=== PATIENT | female | born 1995 ===

== ENCOUNTER 2022-03-22 23:51 | Emergency (ER) | payer BC ==
[2022-03-22 23:58] VITALS: TEMP 98.3
[2022-03-23] MEDS ORDERED: SODIUM CHLORIDE 0.9% 500 ML 500 ML IV STA (00:38)
[2022-03-23] MEDS ORDERED: SODIUM CHLORIDE 0.9% 1,000 ML IV STA ×2 (00:38)
[2022-03-23] MEDS ORDERED: ONDANSETRON 4 MG/2 ML VIAL IVP STA (00:38)
[2022-03-23] MEDS ORDERED: PANTOPRAZOLE 40 MG/10 ML VIAL IVP STA (00:38)
--- NOTE | 2022-03-23 00:39 | ED ---
Nausea/Vomiting/Diarrhea HPI - General Chief complaint: Nausea/Vomiting/Diarrhea Stated complaint: Rapid Heart Rate, Vomiting, Diarrhea Source: patient Mode of arrival: ambulatory Limitations: no limitations - Related Data Home Medications Medication Instructions Recorded Confirmed Cholecalciferol [Vitamin D3 (10 20 mcg PO DAILY 02/16/21 Mcg = 400 Iu)] Multivitamins, Thera [Multivitamin 1 tab PO DAILY 02/16/21 (formulary)] Allergies Allergy/AdvReac Type Severity Reaction Status Date / Time amoxicillin Allergy Itching,rash,rapid Verified 03/22/22 23:58 heart rate cefaclor [From Ceclor] Allergy Unknown Verified 03/22/22 23:58 Childhood diphenhydramine Allergy Rapid Verified 03/22/22 23:58 [From Benadryl] Heart Rate Review of Systems ROS Statement: Those systems with pertinent positive or pertinent negative responses have been documented in the HPI. ROS Other: All systems not noted in ROS Statement are negative. Past Medical History Past Medical History: Asthma, GERD/Reflux Additional Past Medical History / Comment(s): heart palpitations or not sure if was having esophageal spasms, all cardiac testing WNL per pt., tries to eat >3 hours before goes to bed or has horrible heart burn, sometimes epigastric pain, exercised induced asthma, has pituitary adenoma-just moved here from [place] so probably PCP will monitor History of Any Multi-Drug Resistant Organisms: None Reported Past Surgical History: Adenoidectomy, Tonsillectomy Additional Past Surgical History / Comment(s): wisdom teeth removed Past Anesthesia/Blood Transfusion Reactions: No Reported Reaction Past Psychological History: No Psychological Hx Reported Smoking Status: Never smoker Past Alcohol Use History: Occasional Past Drug Use History: None Reported General Exam Limitations: no limitations Course Vital Signs 03/22/22 03/23/22 03/23/22 23:53 00:40 01:45 Temperature 98.3 F Pulse Rate 120 H 104 H 91 Respiratory 20 Rate Blood Pressure 116/76 O2 Sat by Pulse 96 Oximetry Medical Decision Making - Lab Data Result diagrams: 03/23/22 01:24 03/23/22 01:24 Lab Results 03/23/22 03/23/22 03/23/22 Range/Units 01:23 01:24 01:24 WBC 10.7 H (3.8-10.6) k/uL RBC 4.35 (3.80-5.40) m/uL Hgb 13.0 (11.4-16.0) gm/dL Hct 39.3 (34.0-46.0) % MCV 90.3 (80.0-100.0) fL MCH 30.0 (25.0-35.0) pg MCHC 33.2 (31.0-37.0) g/dL RDW 12.3 (11.5-15.5) % Plt Count 326 (150-450) k/uL MPV 8.0 Neutrophils % 84 % Lymphocytes % 10 % Monocytes % 3 % Eosinophils % 1 % Basophils % 0 % Neutrophils # 9.0 H (1.3-7.7) k/uL Lymphocytes # 1.1 (1.0-4.8) k/uL Monocytes # 0.3 (0-1.0) k/uL Eosinophils # 0.1 (0-0.7) k/uL Basophils # 0.0 (0-0.2) k/uL Sodium 137 (137-145) mmol/L Potassium 3.7 (3.5-5.1) mmol/L Chloride 105 (98-107) mmol/L Carbon Dioxide 20 L (22-30) mmol/L Anion Gap 12 mmol/L BUN 14 (7-17) mg/dL Creatinine 0.62 (0.52-1.04) mg/dL Est GFR (CKD-EPI)AfAm >90 (>60 ml/min/1.73 sqM) Est GFR (CKD-EPI)NonAf >90 (>60 ml/min/1.73 sqM) Glucose 117 H (74-99) mg/dL Calcium 9.4 (8.4-10.2) mg/dL Total Bilirubin 0.7 (0.2-1.3) mg/dL AST 32 (14-36) U/L ALT 34 (4-34) U/L Alkaline Phosphatase 58 (38-126) U/L Total Protein 7.2 (6.3-8.2) g/dL Albumin 4.4 (3.5-5.0) g/dL Amylase 81 (30-110) U/L Lipase 29 (23-300) U/L Influenza Type A (PCR) Not Detected (Not Detectd) Influenza Type B (PCR) Not Detected (Not Detectd) RSV (PCR) Not Detected (Not Detectd) SARS-CoV-2 (PCR) Not Detected (Not Detectd) Disposition Clinical Impression: Gastroenteritis, Dehydration Disposition: HOME SELF-CARE Condition: Good Instructions (If sedation given, give patient instructions): Acute Nausea and Vomiting (ED), Acute Diarrhea (ED) Is patient prescribed a controlled substance at d/c from ED?: No Referrals: Nonstaff,Physician [Primary Care Provider] - 1-2 days Time of Disposition: 02:50
[2022-03-23 01:39] LABS: Basophils % (A) 0 %; Eosinophils # (A) 0.1 k/uL (0-0.7); Eosinophils % (A) 1 %; HCT 39.3 % (34.0-46.0); Lymphocytes # (A) 1.1 k/uL (1.0-4.8); Lymphocytes % (A) 10 %; MCHC 33.2 g/dL (31.0-37.0); MCV 90.3 fL (80.0-100.0); Monocytes # (A) 0.3 k/uL (0-1.0); Monocytes % (A) 3 %; Neutrophils % (A) 84 %; Platelet Count 326 k/uL (150-450); RBC 4.35 m/uL (3.80-5.40); RDW 12.3 % (11.5-15.5); WBC 10.7 k/uL (3.8-10.6)
[2022-03-23 01:47] LABS: ALT 34 U/L (4-34); AST 32 U/L (14-36); African American GFR (CKD) >90 (>60 ml/min/1.73 sqM); Albumin 4.4 g/dL (3.5-5.0); Alkaline Phosphatase 58 U/L (38-126); Amylase 81 U/L (30-110); Anion Gap 12 mmol/L; Blood Urea Nitrogen 14 mg/dL (7-17); Calcium 9.4 mg/dL (8.4-10.2); Carbon Dioxide 20 mmol/L (22-30); Chloride 105 mmol/L (98-107); Glucose 117 mg/dL (74-99); Lipase 29 U/L (23-300); Non-African American GFR(CKD) >90 (>60 ml/min/1.73 sqM); Potassium 3.7 mmol/L (3.5-5.1); Sodium 137 mmol/L (137-145); Total Bilirubin 0.7 mg/dL (0.2-1.3); Total Protein 7.2 g/dL (6.3-8.2)
[2022-03-23] MEDS ORDERED: ONDANSETRON 4 MG ODT STARTER PACK 2 TAB BTL PO STA (02:46)
[2022-03-23 03:04] VITALS: BP 104/71; PULSE 71; RESP 16
[2022-03-23 03:04] LABS: Appearance,Urine Clear (Clear); Bilirubin,Urine Negative (Negative); Blood,Urine Negative (Negative); Color,Urine Yellow; Glucose,Urine (UA) Negative (Negative); Hyaline Casts,Urine 1 /lpf (0-2); Ketones,Urine 4+ (Negative); Leukocyte Esterase,Urine Negative (Negative); Mucus,Urine Many /hpf; Nitrite,Urine Negative (Negative); Protein,Urine 1+ (Negative); RBC,Urine 1 /hpf (0-5); Specific Gravity,Urine 1.029 (1.001-1.035); Squamous Epithelial Cell,Urine 2 /hpf (0-4); Urobilinogen,Urine <2.0 mg/dL (<2.0); WBC,Urine 1 /hpf (0-5)
== END 2022-03-23 03:22 | disposition home or self-care (01) ==
LOC: EC 23:51
DX: K52.9 Noninfective gastroenteritis and colitis, unspecified (principal); E86.0 Dehydration; J45.909 Unspecified asthma, uncomplicated; Z20.822 Contact with and (suspected) exposure to COVID-19; Z88.8 Allergy status to other drugs, medicaments and biological substances; Z88.1 Allergy status to other antibiotic agents; Z88.0 Allergy status to penicillin
CPT/HCPCS: 36415; 80053; 82150; 83690; 85025; 81001; 81025; 87636; 99284; 96374; 96375; 96361; J2405; S0119; C9113

== ENCOUNTER 2024-03-12 23:57 | Observation (INO) | payer BC ==
--- NOTE | 2024-03-13 00:15 | ED ---
General Adult HPI - General Stated complaint: Tachycardia Time Seen by Provider: 03/12/24 23:58 Source: patient, EMS, RN notes reviewed Mode of arrival: EMS Limitations: no limitations - History of Present Illness Initial comments: 28-year-old female presents emergency department via EMS with chief complaint of palpitations. Patient states she was suddenly woken by heart racing. She states she felt very dizzy, lightheaded and felt she could not move because she was nauseated and dizzy. Patient brought in by EMS heart rate to be found in meds improved. Patient states this happened several years ago. Patient states that she has been having on and off symptoms has recent seen her primary care physician, has had appointment with neurology and is currently being worked up and has seen cardiology years ago had Holter monitor showing PVCs. Patient denies complaints of chest pain she states she was short of breath. Patient denies any fever cough cold-like symptoms no nausea vomiting. - Related Data Home Medications Medication Instructions Recorded Confirmed Cholecalciferol [Vitamin D3 (10 20 mcg PO DAILY 02/16/21 Mcg = 400 Iu)] Multivitamins, Thera [Multivitamin 1 tab PO DAILY 02/16/21 (formulary)] Allergies Allergy/AdvReac Type Severity Reaction Status Date / Time amoxicillin Allergy Itching,rash,rapid Verified 03/22/22 23:58 heart rate cefaclor [From Ceclor] Allergy Unknown Verified 03/22/22 23:58 Childhood diphenhydramine Allergy Rapid Verified 03/22/22 23:58 [From Benadryl] Heart Rate Review of Systems ROS Statement: Those systems with pertinent positive or pertinent negative responses have been documented in the HPI. ROS Other: All systems not noted in ROS Statement are negative. Past Medical History Past Medical History: Asthma, GERD/Reflux Additional Past Medical History / Comment(s): heart palpitations or not sure if was having esophageal spasms, all cardiac testing WNL per pt., tries to eat >3 hours before goes to bed or has horrible heart burn, sometimes epigastric pain, exercised induced asthma, has pituitary adenoma-just moved here from [place] so probably PCP will monitor History of Any Multi-Drug Resistant Organisms: None Reported Past Surgical History: Adenoidectomy, Tonsillectomy Additional Past Surgical History / Comment(s): wisdom teeth removed Past Anesthesia/Blood Transfusion Reactions: No Reported Reaction Past Psychological History: No Psychological Hx Reported Smoking Status: Never smoker Past Alcohol Use History: Occasional Past Drug Use History: None Reported General Exam Limitations: no limitations General appearance: alert, in no apparent distress Head exam: Present: atraumatic, normocephalic, normal inspection Eye exam: Present: normal appearance, PERRL, EOMI. Absent: scleral icterus, conjunctival injection, periorbital swelling ENT exam: Present: normal exam, normal oropharynx, mucous membranes moist Neck exam: Present: normal inspection, full ROM. Absent: tenderness, meningismus, lymphadenopathy Respiratory exam: Present: normal lung sounds bilaterally. Absent: respiratory distress, wheezes, rales, rhonchi, stridor Cardiovascular Exam: Present: regular rate, normal rhythm, normal heart sounds. Absent: systolic murmur, diastolic murmur, rubs, gallop, clicks GI/Abdominal exam: Present: soft, normal bowel sounds. Absent: distended, tenderness, guarding, rebound, rigid Course Vital Signs 03/13/24 03/13/24 03/13/24 00:00 01:20 02:22 Pulse Rate 126 H 126 H 118 H Respiratory 18 18 18 Rate Blood Pressure 123/86 126/84 121/79 O2 Sat by Pulse 100 100 99 Oximetry EKG Findings - EKG Comments: EKG Findings:: EKG performed at 00: 15 sinus tachycardia rate of 123 [place] 127 QRS 83 QT/QTc 346/417. Repeat EKG interpreted by me as sinus tachycardia rate of 114 [place] 127 QRS 81 QT/QTc 321/389 - EKG Results: EKG: interpreted by [facility] Medical Decision Making - Medical Decision Making Was pt. sent in by a medical professional or institution (, PA, APPRENTICE PLUMBER, urgent care, hospital, or longterm...) When possible be specific @ -No Did you speak to anyone other than the patient for history (EMS, parent, family, police, friend...)? What history was obtained from this source @ -No Did you review nursing and triage notes (agree or disagree)? Why? @ -I reviewed and agree with nursing and triage notes Were old charts reviewed (outside hosp., previous admission, EMS record, old EKG, old radiological studies, urgent care reports/EKG's, longterm records)? Report findings @ -No old charts were reviewed Differential Diagnosis (chest pain, altered mental status, abdominal pain women, abdominal pain men, vaginal bleeding, weakness, fever, dyspnea, syncope, headache, dizziness, GI bleed, back pain, seizure, CVA, palpatations, mental health, musculoskeletal)? @ -Differential Palpitations Ventricular arrhythmias, atrial arrhythmias, myocardial infarction, anemia, thyrotoxicosis, electrolyte imbalance, hypokalemia, pulmonary embolism, pulmonary disease, drugs, alcohol, anxiety, stress.... This is not meant to be an all-inclusive list. EKG interpreted by me (3pts min.). @ -As above X-rays interpreted by me (1pt min.). @ -Chest x-ray shows no acute cardiopulmonary process. CT interpreted by me (1pt min.). @ -None done U/S interpreted by me (1pt. min.). @ -None done What testing was considered but not performed or refused? (CT, X-rays, U/S, labs)? Why? @ -None What meds were considered but not given or refused? Why? @ -None Did you discuss the management of the patient with other professionals (professionals i.e. , PA, APPRENTICE PLUMBER, lab, RT, psych nurse, social media marketing analyst, transonic engineer, teacher, protocol officer, case briefer)? Give summary @ -EMH for admission Was smoking cessation discussed for >3mins.? @ -No Was critical care preformed (if so, how long)? @ -No Were there social determinants of health that impacted care today? How? (Homelessness, low income, unemployed, alcoholism, drug addiction, transportation, low edu. Level, literacy, decrease access to med. care, usp, r ehab)? @ -No Was there de-escalation of care discussed even if they declined (Discuss DNR or withdrawal of care, Hospice)? DNR status @ -No What co-morbidities impacted this encounter? (DM, HTN, Smoking, COPD, CAD, Cancer, CVA, ARF, Chemo, Hep., AIDS, mental health diagnosis, sleep apnea, morbid obesity)? @ -None Was patient admitted / discharged? Hospital course, mention meds given and route, prescriptions, significant lab abnormalities, going to OR and other pertinent info. @ -[Admitted patient's had persistent tachycardia unchanged. Patient will be admitted for cardiology evaluation as she did have some chest discomfort associated. Patient had recent thyroid studies which were unremarkable. Undiagnosed new problem with uncertain prognosis? @ -No Drug Therapy requiring intensive monitoring for toxicity (Heparin, Nitro, Insulin, Cardizem)? @ -No Were any procedures done? @ -No Diagnosis/symptom? @ -Persistent tachycardia Acute, or Chronic, or Acute on Chronic? @ -Acute Uncomplicated (without systemic symptoms) or Complicated (systemic symptoms)? @ -Complicated Side effects of treatment? @ -No Exacerbation, Progression, or Severe Exacerbation? @ -No Poses a threat to life or bodily function? How? (Chest pain, [place], [place], pneumonia, PE, COPD, DKA, ARF, appy, cholecystitis, CVA, Diverticulitis, Homicidal, Suicidal, threat to staff... and all critical care pts) @ -No - Lab Data Result diagrams: 03/13/24 00:26 03/13/24 00:26 Lab Results 03/13/24 03/13/24 03/13/24 Range/Units 00:26 00:26 00:26 WBC 8.8 (3.8-10.6) k/uL RBC 4.23 (3.80-5.40) m/uL Hgb 12.8 (11.4-16.0) gm/dL Hct 38.4 (34.0-46.0) % MCV 90.7 (80.0-100.0) fL MCH 30.3 (25.0-35.0) pg MCHC 33.4 (31.0-37.0) g/dL RDW 12.1 (11.5-15.5) % Plt Count 329 (150-450) k/uL MPV 7.4 Neutrophils % 50 % Lymphocytes % 38 % Monocytes % 4 % Eosinophils % 6 % Basophils % 1 % Neutrophils # 4.4 (1.3-7.7) k/uL Lymphocytes # 3.3 (1.0-4.8) k/uL Monocytes # 0.4 (0-1.0) k/uL Eosinophils # 0.5 (0-0.7) k/uL Basophils # 0.1 (0-0.2) k/uL Sodium 136 L (137-145) mmol/L Potassium 3.5 (3.5-5.1) mmol/L Chloride 108 H (98-107) mmol/L Carbon Dioxide 22 (22-30) mmol/L Anion Gap 6 mmol/L BUN 7 (7-17) mg/dL Creatinine 0.71 (0.52-1.04) mg/dL Est GFR (CKD-EPI)AfAm >90 (>60 ml/min/1.73 sqM) Est GFR (CKD-EPI)NonAf >90 (>60 ml/min/1.73 sqM) Glucose 110 H (74-99) mg/dL Calcium 9.0 (8.4-10.2) mg/dL Magnesium 1.9 (1.6-2.3) mg/dL Total Bilirubin 0.3 (0.2-1.3) mg/dL AST 23 (14-36) U/L ALT 23 (4-34) U/L Alkaline Phosphatase 63 (38-126) U/L Troponin I <0.012 (0.000-0.034) ng/mL Total Protein 7.1 (6.3-8.2) g/dL Albumin 4.5 (3.5-5.0) g/dL Urine Color Urine Appearance (Clear) Urine pH (5.0-8.0) Ur Specific [place] (1.001-1.035) Urine Protein (Negative) Urine Glucose (UA) (Negative) Urine Ketones (Negative) Urine Blood (Negative) Urine Nitrite (Negative) Urine Bilirubin (Negative) Urine Urobilinogen (<2.0) mg/dL Ur Leukocyte Esterase (Negative) Urine HCG, Qual (Not Detectd) Urine Opiates Screen (NotDetected) Ur Oxycodone Screen (NotDetected) Urine Methadone Screen (NotDetected) Ur Barbiturates Screen (NotDetected) U Tricyclic Antidepress (NotDetected) Ur Phencyclidine Scrn (NotDetected) Ur Amphetamines Screen (NotDetected) U Methamphetamines Scrn (NotDetected) U Benzodiazepines Scrn (NotDetected) Urine Cocaine Screen (NotDetected) U Marijuana (THC) Screen (NotDetected) 03/13/24 03/13/24 03/13/24 Range/Units 01:05 01:05 01:05 WBC (3.8-10.6) k/uL RBC (3.80-5.40) m/uL Hgb (11.4-16.0) gm/dL Hct (34.0-46.0) % MCV (80.0-100.0) fL MCH (25.0-35.0) pg MCHC (31.0-37.0) g/dL RDW (11.5-15.5) % Plt Count (150-450) k/uL MPV Neutrophils % % Lymphocytes % % Monocytes % % Eosinophils % % Basophils % % Neutrophils # (1.3-7.7) k/uL Lymphocytes # (1.0-4.8) k/uL Monocytes # (0-1.0) k/uL Eosinophils # (0-0.7) k/uL Basophils # (0-0.2) k/uL Sodium (137-145) mmol/L Potassium (3.5-5.1) mmol/L Chloride (98-107) mmol/L Carbon Dioxide (22-30) mmol/L Anion Gap mmol/L BUN (7-17) mg/dL Creatinine (0.52-1.04) mg/dL Est GFR (CKD-EPI)AfAm (>60 ml/min/1.73 sqM) Est GFR (CKD-EPI)NonAf (>60 ml/min/1.73 sqM) Glucose (74-99) mg/dL Calcium (8.4-10.2) mg/dL Magnesium (1.6-2.3) mg/dL Total Bilirubin (0.2-1.3) mg/dL AST (14-36) U/L ALT (4-34) U/L Alkaline Phosphatase (38-126) U/L Troponin I (0.000-0.034) ng/mL Total Protein (6.3-8.2) g/dL Albumin (3.5-5.0) g/dL Urine Color Colorless Urine Appearance Clear (Clear) Urine pH 7.0 (5.0-8.0) Ur Specific [place] 1.009 (1.001-1.035) Urine Protein Negative (Negative) Urine Glucose (UA) Negative (Negative) Urine Ketones Negative (Negative) Urine Blood Negative (Negative) Urine Nitrite Negative (Negative) Urine Bilirubin Negative (Negative) Urine Urobilinogen <2.0 (<2.0) mg/dL Ur Leukocyte Esterase Negative (Negative) Urine HCG, Qual Not Detected (Not Detectd) Urine Opiates Screen Not Detected (NotDetected) Ur Oxycodone Screen Not Detected (NotDetected) Urine Methadone Screen Not Detected (NotDetected) Ur Barbiturates Screen Not Detected (NotDetected) U Tricyclic Antidepress Not Detected (NotDetected) Ur Phencyclidine Scrn Not Detected (NotDetected) Ur Amphetamines Screen Not Detected (NotDetected) U Methamphetamines Scrn Not Detected (NotDetected) U Benzodiazepines Scrn Not Detected (NotDetected) Urine Cocaine Screen Not Detected (NotDetected) U Marijuana (THC) Screen Not Detected (NotDetected) Disposition Clinical Impression: Tachycardia Disposition: ADMITTED IP TO THIS [facility] Condition: Fair Referrals: Nonstaff,Physician [Primary Care Provider] - 1-2 days Time of Disposition: 02:41
[2024-03-13 00:46] LABS: Basophils # (A) 0.1 k/uL (0-0.2); Basophils % (A) 1 %; Eosinophils # (A) 0.5 k/uL (0-0.7); Eosinophils % (A) 6 %; HCT 38.4 % (34.0-46.0); HGB 12.8 gm/dL (11.4-16.0); Lymphocytes # (A) 3.3 k/uL (1.0-4.8); Lymphocytes % (A) 38 %; MCH 30.3 pg (25.0-35.0); MCHC 33.4 g/dL (31.0-37.0); MCV 90.7 fL (80.0-100.0); Mean Platelet Volume 7.4; Monocytes # (A) 0.4 k/uL (0-1.0); Monocytes % (A) 4 %; Neutrophils # (A) 4.4 k/uL (1.3-7.7); Neutrophils % (A) 50 %; Platelet Count 329 k/uL (150-450); RBC 4.23 m/uL (3.80-5.40); RDW 12.1 % (11.5-15.5); WBC 8.8 k/uL (3.8-10.6)
[2024-03-13] MEDS: SODIUM CHLORIDE 0.9% 1,000 ML IV STA (00:47)
[2024-03-13] MEDS: SODIUM CHLORIDE 0.9% 500 ML 500 ML IV STA (00:47)
[2024-03-13 01:14] LABS: ALT 23 U/L (4-34); AST 23 U/L (14-36); African American GFR (CKD) >90 (>60 ml/min/1.73 sqM); Albumin 4.5 g/dL (3.5-5.0); Alkaline Phosphatase 63 U/L (38-126); Anion Gap 6 mmol/L; Blood Urea Nitrogen 7 mg/dL (7-17); Carbon Dioxide 22 mmol/L (22-30); Chloride 108 mmol/L (98-107); Glucose 110 mg/dL (74-99); Magnesium 1.9 mg/dL (1.6-2.3); Non-African American GFR(CKD) >90 (>60 ml/min/1.73 sqM); Potassium 3.5 mmol/L (3.5-5.1); Sodium 136 mmol/L (137-145); Total Bilirubin 0.3 mg/dL (0.2-1.3); Total Protein 7.1 g/dL (6.3-8.2)
[2024-03-13] MEDS: LORazepam 2 MG/ML INJ IV STA (01:35)
--- NOTE | 2024-03-13 01:54 | XR ---
EXAM: XR Chest, 2 Views CLINICAL HISTORY: ITS.REASON XR Reason: dysrhythmia TECHNIQUE: Frontal and lateral views of the chest. COMPARISON: None. FINDINGS: Lungs: Lungs are somewhat hyperinflated.. No consolidation, focal lesions or pleural effusions are visible. No pneumothorax. Heart: No cardiomegaly. Mediastinum: Unremarkable. Normal mediastinal contour. Bones/joints: Unremarkable. No acute fracture.. IMPRESSION: No acute cardiopulmonary process. .
[2024-03-13 01:55] LABS: Appearance,Urine Clear (Clear); Bilirubin,Urine Negative (Negative); Blood,Urine Negative (Negative); Color,Urine Colorless; Glucose,Urine (UA) Negative (Negative); Ketones,Urine Negative (Negative); Leukocyte Esterase,Urine Negative (Negative); Nitrite,Urine Negative (Negative); Protein,Urine Negative (Negative); Specific Gravity,Urine 1.009 (1.001-1.035); Urobilinogen,Urine <2.0 mg/dL (<2.0)
[2024-03-13 02:12] LABS: Amphetamine Screen,Urine Not Detected (NotDetected); Barbiturate Screen,Urine Not Detected (NotDetected); Benzodiazepines Screen,Urine Not Detected (NotDetected); Cocaine Screen,Urine Not Detected (NotDetected); Methadone Screen, Urine Not Detected (NotDetected); Opiate Screen,Urine Not Detected (NotDetected); Oxycodone Screen, Urine Not Detected (NotDetected); Phencyclidine Screen,Urine Not Detected (NotDetected); Tricyclic Antidepressant,Urine Not Detected (NotDetected); Urn Cannabinoid Scrn Not Detected (NotDetected)
[2024-03-13] MEDS ORDERED: NALOXONE 0.4 MG/ML 1 ML VIAL IV PRN (02:41)
[2024-03-13] MEDS ORDERED: ONDANSETRON 4 MG/2 ML VIAL IVP PRN (02:41)
[2024-03-13] MEDS ORDERED: ACETAMINOPHEN TAB 325 MG TAB PO PRN (02:41)
[2024-03-13] MEDS: METOPROLOL TARTRATE 25 MG TAB PO STA (03:05)
[2024-03-13] MEDS: SODIUM CHLORIDE 0.9% 1,000 ML IV SCH (03:05)
[2024-03-13 06:12] LABS: T4, Free (Free Thyroxine) 0.97 ng/dL (0.78-2.19)
[2024-03-13 08:21] VITALS: TEMP 97.7
[2024-03-13] MEDS: METOPROLOL TARTRATE 25 MG TAB PO SCH (10:00)
[2024-03-13 10:02] VITALS: RESP 16
[2024-03-13] MEDS: POTASSIUM CHLORIDE ER 20 MEQ TAB.ER PO STA (13:25)
[2024-03-13 15:13] VITALS: BP 106/77; PULSE 86
--- NOTE | 2024-03-13 23:44 | CONS ---
CONSULTATION HISTORY: This is a 28-year-old lady who is somewhat new to [facility] and apparently has history of some sinus tachycardia, was evaluated in [place] by a radiologic therapist in the past. She is here mainly because she felt somewhat of palpitations and came into the hospital, was found to be in sinus tachycardia. Also had some dizziness lightheadedness and was nauseated. She received some IV fluids. She feels better, heart rate is in the 80 to 90 range. It was about 120 per minute when she came in. She is known to have sinus tachycardia, had some workup, details are unavailable. She is resting comfortably without symptoms. Apparently, she worked on the computer a lot at her desk and has some neck discomfort. She has moved here from [place] and has not seen a radiologic therapist yet. She has underlying pituitary adenoma that is being followed noninvasively and also has some thyroid issues, details unclear. She sees an spanish interpreter in the [place] area. Her TSH level is low. Free T4 is in the normal range. She may have some clinical hyperthyroidism as well. However, she is comfortable resting at the time of my evaluation, has no chest pain or shortness of breath. MEDICATIONS AT HOME: No prescription medications. SOCIAL HISTORY: Patient is not a smoker. Does not use any recreational drugs. Uses alcohol which she used to drink heavily, but she has cut down and had 2 drinks yesterday. PHYSICAL EXAMINATION: VITAL SIGNS: Blood pressure is 118/70, pulse rate is 75 per minute. HEENT: Unremarkable. Fundus was not examined by me. NECK: Supple. There is no JVD. I do not hear a carotid bruit. HEART: Reveals S1, S2 heard normally. No rub, murmur or gallop. LUNGS: Reveal decent air entry. ABDOMEN: Soft. EXTREMITIES: Lower extremities reveal palpable pulses. No edema. CENTRAL NERVOUS SYSTEM: Normal. IMAGING STUDIES: EKG revealed sinus tachycardia. No acute changes. Right ventricular conduction delay noted. IMPRESSION: 1. Probable mild dehydration with sinus tachycardia, which has resolved. Cannot exclude inappropriate sinus tachycardia as a possibility. 2. History of some neck discomfort, probably related to posture when she was working on her computer. RECOMMENDATIONS: I am recommending metoprolol tartrate 25 mg b.i.d. She is adequately hydrated. Advised to refrain from alcohol intake. I will obtain echocardiogram and based on how she does, we will make further recommendations. Discussed my thoughts in detail with the patient. Her TSH level is less than 0.015, free T4 is normal. She may have subclinical hyperthyroidism. Thank you very much for the consult. JENELLE / CORNELIUS: [id number] /
--- NOTE | 2024-03-15 16:13 | P.HPIM ---
History of Present Illness H&P Date: 03/13/24 This is a pleasant 28-year-old female who presented to the emergency department with palpitations and feeling like heart racing and chest pain. Patient has a primary care provider in the outpatient setting with a past medical history of asthma, GERD, previous heart palpitations and per chart history of a pituitary adenoma and has had a previous episode in 2019 with palpitations although testing was normal. Patient reports to experiencing extreme stress and anxiety with work and has been drinking more frequently and was drinking prior to going to bed last night. Patient reports that the racing heart rate and palpitations woke her up and she felt like she was going to pass out. Labs reviewed showing normal CBC, sodium was 136 with a potassium of 3.5, creatinine was normal at 0.71, troponins x 3 were negative, TSH mildly low at 0.015 although T4 was 0.97. Urinalysis as well as drug screen were negative. Patient was admitted under observation for cardiology evaluation on telemetry monitoring. REVIEW OF SYSTEMS: CONSTITUTIONAL: No fever, no malaise, no fatigue. HEENT: No recent visual problems or hearing problems. Denied any sore throat. CARDIOVASCULAR: No chest pain, orthopnea, PND, reported palpitations that has since resolved, no syncope. PULMONARY: No shortness of breath, no cough, no hemoptysis. GASTROINTESTINAL: No diarrhea, no nausea, no vomiting, no abdominal pain. NEUROLOGICAL: No headaches, no weakness, no numbness. HEMATOLOGICAL: Denies any bleeding or petechiae. GENITOURINARY: Denies any burning micturition, frequency, or urgency. MUSCULOSKELETAL/RHEUMATOLOGICAL: Denies any joint pain, swelling, or any muscle pain. ENDOCRINE: Denies any polyuria or polydipsia. The rest of the 14-point review of systems is negative. PHYSICAL EXAMINATION: GENERAL: The patient is alert and oriented x3, not in any acute distress. Well developed, well nourished. Thin built HEENT: Pupils are round and equally reacting to light. EOMI. No scleral icterus. No conjunctival pallor. Normocephalic, atraumatic. No pharyngeal erythema. No thyromegaly. CARDIOVASCULAR: S1 and S2 present. No murmurs, rubs, or gallops. PULMONARY: Chest is clear to auscultation, no wheezing or crackles. ABDOMEN: Soft, nontender, nondistended, normoactive bowel sounds. No palpable organomegaly. MUSCULOSKELETAL: No joint swelling or deformity. EXTREMITIES: No cyanosis, clubbing, or pedal edema. NEUROLOGICAL: Gross neurological examination did not reveal any focal deficits. SKIN: No rashes. Assessment: Palpitations and heart racing, EKG shows sinus tachycardia, possibly secondary to dehydration EtOH use, patient reports has been more frequently Anxiety with social stressors History of pituitary adenoma History of asthma, mostly exercise-induced asthma, not in exacerbation GI prophylaxis DVT prophylaxis Full code Plan: Patient was admitted for palpitations and given gentle hydration and EKG revealed sinus tachycardia which has resolved. Cardiology evaluated the patient recommending an echo and outpatient follow-up Patient instructed to follow-up with endocrine outpatient. Patient reports she follows with 1 out in the [place] area with a low TSH but a normal T4 free Recommend follow-up with primary care provider as well as cardiology outpatient Patient has been cleared by cardiology for discharge and patient reports to feeling improved and would like to go home. Patient will be discharged later today The impression and plan of care has been dictated by Courtney Moody, Nurse Practitioner as directed. Dr. Saeed MD I have performed a history and examination and MDM of this patient, discussed the same with the dictator, and agree with the dictator's assessment and plan as written ,documented as a scribe. Based on total visit time, I have performed more than 50% of the visit. Past Medical History Past Medical History: Asthma, GERD/Reflux Additional Past Medical History / Comment(s): heart palpitations or not sure if was having esophageal spasms, all cardiac testing WNL per pt., tries to eat >3 hours before goes to bed or has horrible heart burn, sometimes epigastric pain, exercised induced asthma, has pituitary adenoma-just moved here from [place] so probably PCP will monitor History of Any Multi-Drug Resistant Organisms: None Reported Past Surgical History: Adenoidectomy, Tonsillectomy Additional Past Surgical History / Comment(s): wisdom teeth removed Past Anesthesia/Blood Transfusion Reactions: No Reported Reaction Past Psychological History: No Psychological Hx Reported Smoking Status: Never smoker Past Alcohol Use History: Occasional Past Drug Use History: None Reported Medications and Allergies Home Medications Medication Instructions Recorded Confirmed Type Albuterol Inhaler [Ventolin Hfa 2 puff INHALATION Q6H PRN 30 Days 03/13/24 Rx Inhaler] #1 each Cequa 1 drop BOTH EYES BID 03/13/24 03/13/24 History Loratadine [Claritin] 10 mg PO DAILY 03/13/24 03/13/24 History Metoprolol Tartrate [Lopressor] 25 mg PO BID #60 tab 03/13/24 Rx Allergies Allergy/AdvReac Type Severity Reaction Status Date / Time amoxicillin Allergy Itching,rash,rapid Verified 03/13/24 07:41 heart rate cefaclor [From Ceclor] Allergy Unknown Verified 03/13/24 07:41 Childhood diphenhydramine Allergy Itching,rash,rapid Verified 03/13/24 07:41 [From Benadryl] heart rate Physical Exam Vitals: Vital Signs Temp Pulse Resp BP Pulse Ox 03/13/24 08:19 97.7 F 75 14 113/76 99 03/13/24 06:36 79 16 111/79 03/13/24 05:00 70 03/13/24 03:41 106 H 16 129/88 99 03/13/24 02:22 118 H 18 121/79 99 03/13/24 01:20 126 H 18 126/84 100 03/13/24 00:00 126 H 18 123/86 100 Intake and Output 03/12/24 03/13/24 03/13/24 22:59 06:59 14:59 Other: Weight 58.967 kg Results CBC & Chem 7: 03/13/24 00:26 03/13/24 00:26 Labs: Abnormal Lab Results - Last 24 Hours (Table) 03/13/24 03/13/24 Range/Units 00:26 00:26 Sodium 136 L (137-145) mmol/L Chloride 108 H (98-107) mmol/L Glucose 110 H (74-99) mg/dL TSH <0.015 L (0.465-4.680) mIU/L Assessment and Plan Time with Patient: Greater than 30
--- NOTE | 2024-03-15 16:15 | P.DS ---
Providers Date of admission: 03/13/24 02:42 Expected date of discharge: 03/13/24 Attending physician: Kwabena Ralph Consults: 03/13/24 02:41 Consult Physician Urgent Consulting Provider: Damien Jorge Consult Reason/Comments: tachycardia Do you want consulting provider notified?: Yes Primary care physician: Physician Nonstaff Hospital Course: Final diagnosis Palpitations and heart racing, EKG shows sinus tachycardia, possibly secondary to dehydration EtOH use, patient reports has been more frequently Anxiety with social stressors History of pituitary adenoma History of asthma, mostly exercise-induced asthma, not in exacerbation GI prophylaxis DVT prophylaxis Full code Discharge disposition Patient is being discharged in a stable condition with guarded prognosis to [facility]. Patient will follow-up with her primary care provider in the outpatient setting upon discharge. Patient is to follow-up with endocrine as well as cardiology outpatient as scheduled. Total time taken is greater than 35 minutes. Hospital course This is a pleasant 28-year-old female who presented to the emergency department with palpitations and feeling like heart racing and chest pain. Patient has a primary care provider in the outpatient setting with a past medical history of asthma, GERD, previous heart palpitations and per chart history of a pituitary adenoma and has had a previous episode in 2019 with palpitations although testing was normal. Patient reports to experiencing extreme stress and anxiety with work and has been drinking more frequently and was drinking prior to going to bed last night. Patient reports that the racing heart rate and palpitations woke her up and she felt like she was going to pass out. Labs reviewed showing normal CBC, sodium was 136 with a potassium of 3.5, creatinine was normal at 0.71, troponins x 3 were negative, TSH mildly low at 0.015 although T4 was 0.97. Urinalysis as well as drug screen were negative. Patient was admitted under ob servation for cardiology evaluation on telemetry monitoring. Patient evaluated after cardiology evaluation and follow-up reports to feeling improved and would like to go home. Cardiology has cleared the patient for discharge. Please refer to cardiology notes for further HPI. Patient will follow-up with her endocrine specialist as well as her primary care provider on discharge. Recommend outpatient follow-up with cardiology as well. Currently no reports of chest pain, shortness of breath, or palpitations. Patient is afebrile. No reports of nausea or vomiting and patient is tolerating diet. Patient will be discharged home today. PHYSICAL EXAMINATION: GENERAL: The patient is alert and oriented x3, not in any acute distress. Well developed, well nourished. Thin built HEENT: Pupils are round and equally reacting to light. EOMI. No scleral icterus. No conjunctival pallor. Normocephalic, atraumatic. No pharyngeal erythema. No thyromegaly. CARDIOVASCULAR: S1 and S2 present. No murmurs, rubs, or gallops. PULMONARY: Chest is clear to auscultation, no wheezing or crackles. ABDOMEN: Soft, nontender, nondistended, normoactive bowel sounds. No palpable organomegaly. MUSCULOSKELETAL: No joint swelling or deformity. EXTREMITIES: No cyanosis, clubbing, or pedal edema. NEUROLOGICAL: Gross neurological examination did not reveal any focal deficits. SKIN: No rashes. Please refer to medication reconciliation sheet for a list of medications. The impression and plan of care has been dictated by Courtney Moody, Nurse Practitioner as directed. Dr. Saeed MD I have performed a history and examination and MDM of this patient, discussed the same with the dictator, and agree with the dictator's assessment and plan as written ,documented as a scribe. Based on total visit time, I have performed more than 50% of the visit. Patient Condition at Discharge: Fair Plan - Discharge Summary New Discharge Prescriptions: New Metoprolol Tartrate [Lopressor] 25 mg PO BID #60 tab Albuterol Inhaler [Ventolin Hfa Inhaler] 2 puff INHALATION Q6H PRN 30 Days #1 each PRN Reason: Wheezing Continue Loratadine [Claritin] 10 mg PO DAILY Cequa 1 drop BOTH EYES BID Discharge Medication List Albuterol Inhaler [Ventolin Hfa Inhaler] 2 puff INHALATION Q6H PRN 30 Days #1 each 03/13/24 [Rx] Cequa 1 drop BOTH EYES BID 03/13/24 [History] Loratadine [Claritin] 10 mg PO DAILY 03/13/24 [History] Metoprolol Tartrate [Lopressor] 25 mg PO BID #60 tab 03/13/24 [Rx] Follow up Appointment(s)/Referral(s): Abel Parker MD [STAFF PHYSICIAN] - 1 Week Jackson Joy MD [REFERRING] - 1 Week Nonstaff,Physician [Primary Care Provider] - 1-2 days Activity/Diet/Wound Care/Special Instructions: Activity limited until follow-up Follow-up with cardiology in 1 week Continue taking medications as prescribed Recommend follow-up with endocrine as well outpatient Repeat labs in 4 to 6 weeks to recheck TSH levels Discharge Disposition: HOME SELF-CARE
== END 2024-03-13 15:15 | disposition home or self-care (01) ==
LOC: EC 23:57 → 6NMEDSUR 03-13 02:42
PROVIDERS: ADMIT Hospitalist; ATTEND Hospitalist
DX: R00.0 Tachycardia, unspecified (principal); R00.2 Palpitations; K21.9 Gastro-esophageal reflux disease without esophagitis; J45.990 Exercise induced bronchospasm; F10.90 Alcohol use, unspecified, uncomplicated; F41.9 Anxiety disorder, unspecified; D35.2 Benign neoplasm of pituitary gland; Z79.899 Other long term (current) drug therapy; Z88.0 Allergy status to penicillin; Z88.1 Allergy status to other antibiotic agents
CPT/HCPCS: 99285; 36415; 93005; 84439; 80053; 84443; 83735; 84484; 85025; 81003; 81025; 80306; 71046; G0378